=== PATIENT | male | born 1985 | race Hispanic/Latino ===

== ENCOUNTER 2020-10-02 17:05 | Emergency (ER) | payer SELFPAY ==
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
[2020-10-02 17:35] VITALS: BP 118/80
== END 2020-10-02 18:44 | disposition home or self-care (01) ==
LOC: ED 17:05
DX: M79.18 Myalgia, other site (principal); Z79.899 Other long term (current) drug therapy; V49.59XA Passenger injured in collision with other motor vehicles in traffic accident, initial encounter; Y92.410 Unspecified street and highway as the place of occurrence of the external cause; Y93.89 Activity, other specified; Y99.8 Other external cause status
CPT/HCPCS: 99282